=== PATIENT | male | born 1945 | race Caucasian/White ===

== ENCOUNTER 2018-03-05 05:52 | Day surgery (SDC) | payer MEDICARE, OTHER ==
[~2018-03-05] VITALS: Ht 190.5 cm; Wt 96.6 kg
[~2018-03-05 05:52] MED LIST: ASPI325 PO; Advil200 M1 PO; Aspirin325 MG PO; ESOM20 PO; Endocet 7.5-321 EACH PO; GABA300 PO; HYDR1TAB94 PO; Hydrocodone-Ap1 EA20 PO; LISI5 PO; MELA3 PO; MELO7.5 PO; Multivitamin1 EAC1 PO; OXYACE5T PO; Omeprazole20 M1 PO; STOOL SOFTENER1 EAC1 PO; Stool Softener250 MG PO
--- NOTE | 2018-03-05 07:02 | NUR ---
History, Chart, Medications and Allergies reviewed before start of procedure.Patient confirms NPO status and agrees with scheduled surgery. Patient reports completing Chlorhexadine shower X2 prior to admission to hospital.Surgical site prepped with 2% Chlorhexidine cloth wipe.
--- NOTE | 2018-03-05 09:10 | NUR ---
PT AWAKE, ALERT UPON ARRIVAL TO STEPDOWN. EATING ICE CHIPS. DENIES PAIN OR TENDERNESS "UNLESS I COUGH." DENIES NAUSEA. USING SPLINTING TECHNIQUES ON OWN FOR DISCOMFORT WITH COUGHING. REVIEWED TECHNIQUE AND PATIENT DEMONSTRATES WELL.
--- NOTE | 2018-03-05 09:23 | NUR ---
TO BEDSIDE. PT DISCUSSING PROCEDURE WITH . NO C/O PAIN OR DISCOMFORT. TOLERATING JUICE WITHOUT DIFFICULTY.
--- NOTE | 2018-03-05 09:34 | NUR ---
REVIEWED DISCHARGE INSTRUCTIONS WITH PATIENT AND , BOTH OF WHOM VERBALIZE UNDERSTANDING OF ALL. QUESTIONS ANSWERED AND DISCUSSED FOLLOW UP WELL. PT STATES HE FEELS READY TO GO HOME.
--- NOTE | 2018-03-05 09:43 | NUR ---
PT STOOD AT BEDSIDE - USED GOOD BODY MECHANIQUES TO GET OFF STRETCHER, PROTECTING SURGICAL AREA. NO C/O DIZZINESS OR LIGHTHEADEDNESS. STEADY ON FEET. NO CHANGE IN VITALS. AT BEDSIDE TO HELP PATIENT GET DRESSED AT THIS TIME.
--- NOTE | 2018-03-05 09:56 | NUR ---
IV D/C TIP INTACT. PT AMBULATED TO BATHROOM WITHOUT DIFFICULTY. STEADY ON FEET. DISCHARGED HOME VIA W/C WITH TO DRIVE HIM.
== END 2018-03-05 23:05 | disposition home or self-care (01) ==
LOC: ORSCMMR 05:52 → ORD 07:30 → ORSCMMR 23:05
PROVIDERS: Surgery
PROC: 0YU50JZ Supplement Right Inguinal Region with Synthetic Substitute, Open Approach (ICD-10-PCS; principal; 2018-03-05 07:30)
DX: K40.90 Unilateral inguinal hernia, without obstruction or gangrene, not specified as recurrent (principal); I10 Essential (primary) hypertension; K21.9 Gastro-esophageal reflux disease without esophagitis; Z79.899 Other long term (current) drug therapy
CPT/HCPCS: C1781; J0330; J0690; J1100; J2250; J2370; J2405; J3010; J7120

== ENCOUNTER 2018-04-27 09:11 | Day surgery (SDC) | payer MEDICARE, OTHER ==
[~2018-04-27] VITALS: Ht 190.5 cm; Wt 92.3 kg
--- NOTE | 2018-04-27 12:53 | NUR ---
04/27/18 1253 Colby Castellano PROCEDURE STOPPED AT 1010, SCOPE WAS CHANGED AND PROCEDURE WAS RESTARTED AT 1014
--- NOTE | 2018-04-27 12:58 | NUR ---
04/27/18 [id number] Colby Castellano NURSE ASSISTED PATIENT WALK OUT TO HIS RIDE HOME
== END 2018-04-27 10:56 | disposition home or self-care (01) ==
LOC: ORSCSDS 09:11
PROVIDERS: Surgery
PROC: 0DJD8ZZ Inspection of Lower Intestinal Tract, Via Natural or Artificial Opening Endoscopic (ICD-10-PCS; principal; 2018-04-27 10:30)
DX: Z12.11 Encounter for screening for malignant neoplasm of colon (principal); Z80.0 Family history of malignant neoplasm of digestive organs; K57.30 Diverticulosis of large intestine without perforation or abscess without bleeding; K64.8 Other hemorrhoids; I10 Essential (primary) hypertension; Z79.899 Other long term (current) drug therapy
CPT/HCPCS: J7120

== ENCOUNTER 2019-09-05 07:40 | Day surgery (SDC) | payer MEDICARE, OTHER ==
[~2019-09-05] VITALS: Ht 190.5 cm; Wt 87.8 kg
[~2019-09-05 07:40] MED LIST changes: +FLUT.05NI; +MELATONIN10 M5 PO; +Prinivil10 MG PO
== END 2019-09-05 12:30 | disposition home or self-care (01) ==
LOC: ORSCSDS 07:40
PROVIDERS: Otolaryngology
PROC: 8E09XBZ Computer Assisted Procedure of Head and Neck Region (ICD-10-PCS; principal; 2019-09-05 09:00)
PROC: 09DV4ZZ Extraction of Left Ethmoid Sinus, Percutaneous Endoscopic Approach (ICD-10-PCS; principal; 2019-09-05 09:00)
PROC: 09DU4ZZ Extraction of Right Ethmoid Sinus, Percutaneous Endoscopic Approach (ICD-10-PCS; principal; 2019-09-05 09:00)
DX: J32.8 Other chronic sinusitis (principal); I10 Essential (primary) hypertension; K21.9 Gastro-esophageal reflux disease without esophagitis; Z79.899 Other long term (current) drug therapy
CPT/HCPCS: C2625; J1100; J2001; J2370; J2405; J2704; J3010; J7120

== ENCOUNTER 2020-09-15 07:58 | Emergency (ER) | payer MEDICARE, OTHER ==
[~2020-09-15] VITALS: Ht 188 cm; Wt 95.2 kg
[2020-09-15] MEDS ORDERED: IBUP400 PO (14:59)
== END 2020-09-15 15:16 | disposition home or self-care (01) ==
LOC: ER 07:58
DX: M54.9 Dorsalgia, unspecified (principal); M25.559 Pain in unspecified hip; M51.36 Other intervertebral disc degeneration, lumbar region; M16.10 Unilateral primary osteoarthritis, unspecified hip; M46.1 Sacroiliitis, not elsewhere classified; Z88.0 Allergy status to penicillin; Z91.048 Other nonmedicinal substance allergy status; Z98.1 Arthrodesis status
CPT/HCPCS: 72100; 72170; 96372; 99283-25; A9270; J1885

== ENCOUNTER → 2022-03-13 | Outpatient (CLI) | payer MEDICARE, OTHER ==
[~2022-03-13] MED LIST changes: +IBUP400 PO
[2022-03-13 11:47] LABS: BASOPHILS ABSOLUTE AUTO 0.04 K/mm3 (0.00-0.23); BASOPHILS PERCENT AUTO 0 % (0-2); EOSINOPHILS ABSOLUTE AUTO 0.01 K/mm3 (0.00-0.68); EOSINOPHILS PERCENT AUTO 0 % (0-6); IMMATURE GRAN ABSOLUTE AUTO 0.11 K/mm3 (0.00-0.10); IMMATURE GRAN PERCENT AUTO 1 % (0-1); LYMPHOCYTES ABSOLUTE AUTO 0.48 K/mm3 (0.84-5.20); LYMPHOCYTES PERCENT AUTO 3 % (21-46); MONOCYTES ABSOLUTE AUTO 0.97 K/mm3 (0.16-1.47); MONOCYTES PERCENT AUTO 6 % (4-13); Mean Corpuscular HGB 31.1 pg (26.0-34.0); Mean Corpuscular HGB Conc 33.3 g/dL (31.5-36.5); Mean Corpuscular Volume 93 fL (80-100); Mean Platelet Volume 9.6 fL (9.1-12.4); NEUTROPHILS PERCENT AUTO 91 % (41-73); Platelet Count 179 K/mm3 (150-400); RDW Coefficient Variation 12.5 % (11.7-14.2); RDW Standard Deviation 43.2 fL (35.1-46.3); Red Blood Cell Count 4.18 M/mm3 (4.30-5.90); White Blood Cell Count 17.01 K/mm3 (4.00-11.30)
[2022-03-13 12:05] LABS: Albumin, Blood 3.8 g/dL (3.4-5.0); Albumin/Globulin Ratio 1.1 (0.8-1.8); Bilirubin, Total 0.7 mg/dL (0.1-1.0); Bun/Creatinine Ratio 14.9 (12.0-20.0); Calcium, Blood 9.2 mg/dL (8.5-10.1); Creatinine, Blood 1.34 mg/dL (0.60-1.20); Globulin, Blood 3.6 g/dL (2.2-4.0); Potassium, Blood 3.9 mmol/L (3.5-5.5); Total Protein, Blood 7.4 g/dL (6.4-8.2)
== END | disposition home or self-care (01) ==
LOC: LAB SHORT 11:41
PROVIDERS: Physician Assistant
DX: R10.9 Unspecified abdominal pain (principal); R42 Dizziness and giddiness
CPT/HCPCS: 80053; 83690; 84484; 85025

== ENCOUNTER → 2022-03-14 | Outpatient (CLI) | payer MEDICARE, OTHER ==
[2022-03-14 14:14] LABS: BASOPHILS ABSOLUTE AUTO 0.03 K/mm3 (0.00-0.23); BASOPHILS PERCENT AUTO 0 % (0-2); EOSINOPHILS ABSOLUTE AUTO 0.24 K/mm3 (0.00-0.68); EOSINOPHILS PERCENT AUTO 2 % (0-6); Hematocrit 33.5 % (37.0-53.0); Hemoglobin 11.4 g/dL (13.5-17.5); IMMATURE GRAN ABSOLUTE AUTO 0.07 K/mm3 (0.00-0.10); IMMATURE GRAN PERCENT AUTO 1 % (0-1); LYMPHOCYTES ABSOLUTE AUTO 1.71 K/mm3 (0.84-5.20); LYMPHOCYTES PERCENT AUTO 12 % (21-46); MONOCYTES ABSOLUTE AUTO 0.96 K/mm3 (0.16-1.47); MONOCYTES PERCENT AUTO 7 % (4-13); Mean Corpuscular HGB 31.9 pg (26.0-34.0); Mean Corpuscular Volume 94 fL (80-100); Mean Platelet Volume 9.7 fL (9.1-12.4); NEUTROPHILS ABSOLUTE AUTO 10.99 K/mm3 (1.96-9.15); NEUTROPHILS PERCENT AUTO 79 % (41-73); Platelet Count 168 K/mm3 (150-400); RDW Coefficient Variation 12.5 % (11.7-14.2); RDW Standard Deviation 43.1 fL (35.1-46.3); Red Blood Cell Count 3.57 M/mm3 (4.30-5.90)
[2022-03-14 14:35] LABS: Bun/Creatinine Ratio 16.7 (12.0-20.0); Calcium, Blood 8.2 mg/dL (8.5-10.1); Creatinine, Blood 1.14 mg/dL (0.60-1.20); Potassium, Blood 3.8 mmol/L (3.5-5.5)
== END | disposition home or self-care (01) ==
LOC: LAB SHORT 14:09
PROVIDERS: Physician Assistant
DX: R91.8 Other nonspecific abnormal finding of lung field (principal)
CPT/HCPCS: 80048; 85025

== ENCOUNTER 2023-01-29 13:38 | Day surgery (SDC) | payer MEDICARE, OTHER ==
[~2023-01-29] VITALS: Ht 188 cm; Wt 91.7 kg
[~2023-01-29 13:38] MED LIST changes: +CELE200 PO; +DOCUZEN 8.6-501 EACH PO; +Nexium40 MG PO
--- NOTE | 2023-01-29 15:55 | NUR ---
01/29/23 [id number] Kolby Campuzano PT NOTIFIED THAT HIS PROCEDURE IS DELAYED DUE TO ANESTHESIA CASES RUNNING BEHIND. PT APPEARED CALM AND UNDERSTANDING. PT TAKEN TO THE TOILET TWO TIMES WHILE WAITING. CALL LIGHT WITHIN REACH AND WARM BLANKETS PROVIDED FOR PT COMFORT.
[2023-01-29 17:10] VITALS: BP 138/81
== END 2023-01-29 16:58 | disposition home or self-care (01) ==
LOC: ORSCSDS 13:38
PROVIDERS: Surgery
PROC: 0DJD8ZZ Inspection of Lower Intestinal Tract, Via Natural or Artificial Opening Endoscopic (ICD-10-PCS; principal; 2023-01-29 15:00)
DX: R19.4 Change in bowel habit (principal); K57.30 Diverticulosis of large intestine without perforation or abscess without bleeding; Z80.0 Family history of malignant neoplasm of digestive organs; I10 Essential (primary) hypertension; K21.9 Gastro-esophageal reflux disease without esophagitis; N40.0 Benign prostatic hyperplasia without lower urinary tract symptoms; Z79.899 Other long term (current) drug therapy
CPT/HCPCS: J0461; J2001; J2405; J2704; J7120; Q9968

== ENCOUNTER → 2024-11-30 | Outpatient (CLI) | payer MEDICARE, OTHER | LOC: LAB 10:12 → LAB SHORT 10:12 | DX: R22.32 Localized swelling, mass and lump, left upper limb (principal); Z51.81 Encounter for therapeutic drug level monitoring; I48.0 Paroxysmal atrial fibrillation; Z79.01 Long term (current) use of anticoagulants | CPT/HCPCS: 36416; 85610; 88304 ==